=== PATIENT | male | born 1995 | race Caucasian/White ===

== ENCOUNTER 2017-01-29 18:07 | Emergency (ER) | payer OTHER ==
[~2017-01-29] VITALS: Ht 177.8 cm; Wt 75.0 kg
[2017-01-29 18:15] VITALS: BP 130/86; PULSE 76; RESP 12; O2SAT 99
--- NOTE | 2017-01-29 18:28 | ED.REPORT ---
HPI-General Illness Date of Service Jan 29, 2017 ED Provider: Zelalem London MD The pt is a 21 y/o male presenting to the ED due to a head trauma. He was inner tubing and hit the L side of his face on his friend's head. The pt also reports pain while opening his jaw, blurry vision and L teeth hurting. There was no LOC but he did report feeling nauseas after the incident, but much better now. He reports the pain being a 5/10 a few hours ago, but a 1/10 currently, primarily to the L side of his face and not really radiating. Worse w/ movement. He took 162 mg of Aspirin for the pain. His mother also reports her son walking off to the side and having slurred speech. The pt's vision is improving and is feeling much better now. No other complaints at this time. Nursing Notes Stated Complaint: SUSPECTED CONCUSSION Chief Complaint: Head, Face, Neck Trauma Nursing Notes Reviewed: Yes Allergies: Coded Allergies: No Known Allergies (Unverified , 01/29/17) General Time Seen by MD: 18:28 Chief Complaint Headache Hx Obtained From: Patient Arrived By: Walk-in Sudden in Onset?: Yes Symptom Duration: Since onset Caused by: Blunt trauma Location: : Head Quality: Aching Severity: Current: Pain level 1 out of 10 Severity: Maximum: Pain level 5 out of 10 Recent Healthcare: No recent doctor visit, No recent hospitalization Similar Sx Previous: No Past Medical History Past Medical History None reported Past Surgical History [place] teeth removal Smoking History Never Smoker Social History Alcohol Use: Denies alcohol use Drug Use: Denies drug use Other Social History: Good social support Ambulatory Status Independent Review of Systems L sided face pain Full Review of Systems Respiratory: Denies: Shortness of breath Cardiovascular: Denies: Chest pain Musculoskeletal: Denies: Back pain, Neck pain Complete sys rev & neg: except as marked. Physical Exam General: Airway patent, GCS of 15 --- eyes (4), verbal (5), motor (6) HEENT: Right eye normal with pupils 4-3 and briskly reactive Left eye normal with pupils 4-3 and briskly reactive No malocclusion. No nasal septal hematoma No obvious external signs of trauma to the scalp appreciated Swelling to the L side of face underneath eye but not above. Neck: nontender, trachea midline Lungs: Clear to auscultation bilaterally, normal work of breathing Chest: Stable without tenderness, no crepitus Cardiac: Regular rate and rhythm Abdomen: Normal, non-tender, non-distended. Back: No bruising, tenderness, or step-offs Pelvis: Stable Skin: Warm and well perfused Extremities: Left upper extremity grossly normal, no deformity. Right upper extremity grossly normal, no deformity. Right lower extremity grossly normal, no deformity. Left lower extremity grossly normal, no deformity. Pulses: Palpable to bilateral upper and lower extremities Neuro: Motor and sensory exams grossly within normal limits; patient localizes to pain. Vital Signs Vital Signs Date Time Temp Pulse Resp B/P Pulse Ox O2 Delivery O2 Flow Rate FiO2 01/29/17 22:09 36.6 89 12 119/70 98 Room Air 01/29/17 21:32 36.6 94 126/72 96 Room Air 01/29/17 18:15 36.7 76 12 130/86 99 Room Air Interpretation & Diagnostics Face CT w/o contrast IMPRESSION: There is a set of facial fractures on the left are only very slightly depressed or angulated, comprised of the lateral wall of the left orbit , the lateral and anterior lu of the left maxillary sinus, and the middle third of zygomatic arch. There is an associated small air-fluid level within the maxillary sinus posteriorly, and within the left orbit no trauma to the globe or extraocular musculature is seen. Dictated by: Thor Bruno M.D. on 01/29/2017 at 21:22 Approved by: Thor Bruno M.D. on 01/29/2017 at 21:26 CT Head Interpretation IMPRESSION: The brain parenchyma appears free of acute trauma or intracranial hemorrhage. There is a finding of several left-sided facial fractures, much better visualized by dedicated facial CT also obtained today. Please refer to that report. Dictated by: Thor Bruno M.D. on 01/29/2017 at 21:26 Approved by: Thor Bruno M.D. on 01/29/2017 at 21:28 Study: Head CT no contrast Interpretation / Wet Read by: Interpret - Radiologist Re-Eval/Medical Decision Med Decision/Clinical Course Facial CT w/ fx to lateral wall of the left orbit, the lateral and anterior lu of the left maxillary sinus, and the middle third of zygomatic arch. No orbital involvement. No evidence for retrobulbar hematoma. Head CT negative for acute abnormality. I suspect he's suffered a concussion. ENT c/s here in the ED and will see the patient in clinic, no need for further intervention at this time. Careful return precautions and home instructions discussed. Patient agreeable to plan, no further questions. Source of Hx: Old records Time of Eval: 21:45 Re-Evaluation/Progress Note: Pt rechecked. Informed pt of plan for treatment. Pt understands and agrees with plan for treatment. F/U instructions and RTER warnings given. All questions addressed. Consultation : Referral / Consult Name: Ovidio Bess MD Consulted With: ENT Call Returned at: 21:38 Note: Discussed pt's case. Dr. Bess says there is no need for any procedures but to keep head elevated tonight and f/u in clinic in next couple days. Counseled Regarding: Diagnosis, Lab results, Need for follow-up, When/why to return to ED Discharge & Departure Primary Impression: Orbit fracture, left Encounter type: initial encounter Fracture type: closed Qualified Code: S02.82XA - Fracture of other specified skull and facial bones, left side, initial encounter for closed fracture Additional Impressions: Zygomatic arch fracture Encounter type: initial encounter Fracture type: closed Laterality: unspecified laterality Qualified Code: S02.402A - Zygomatic fracture, unspecified side, initial encounter for closed fracture Left maxillary fracture Encounter type: initial encounter Fracture type: closed Qualified Code: S02.40DA - Maxillary fracture, left side, initial encounter for closed fracture Disposition: Home Discharge Condition All VS Reviewed: Yes Condition: Stable Patient Instructions: Facial Fracture (ED) Additional Instructions: Thank you for coming into the emergency department today. You were diagnosed with a facial fracture. Please read the attached additional instructions. There is no need for any surgical procedures at this time, but make sure to keep your head elevated tonight. Do not blow your nose; try sniffing tonight instead. Follow up with your primary care provider in the next few days, as well as with ENT. Referrals: Latoya Conrad MD (PCP) Camilleibe Attestation Portions of this note were transcribed by Brando Guzman. I, Dr. Masterson personally performed the history, physical exam and medical decision- making; I reviewed and confirmed the accuracy of the information in the transcribed note. Signed by: Wiley Mccall, 01/29/17 and 2058. copies to: Latoya Conrad MD, William B MD Jan 29, 2017 18:28 Brando Guzman Jan 29, 2017 20:56 Adryan Masterson MD Jan 29, 2017 18:28 Brando Guzman Jan 29, 2017 20:56
--- NOTE | 2017-01-29 21:28 | DRSVH ---
PROCEDURE: CT FACE WITHOUT CONTRAST ([id number]) INDICATIONS: facial trauma, swelling; eval fx, etc TECHNIQUE: Noncontrast 1.5 mm thick axial images acquired from the mandible through the frontal sinuses, with co malinda and sagittal reformatting. For radiation dose reduction, the following was used: automated ex posure control. COMPARISON: [facility], CT, CT BRAIN WO CON, 01/29/2017, 20:42. FINDINGS: Image quality: Excellent. Bones and teeth: Orbital lu are intact on the right but there appears to be a slightly displaced lateral wall left orbit fracture. Sinus lu on the right show no fracture or deformity but there i s a mildly depressed left lateral wall maxillary sinus fracture, with associated small posterior air- fluid level. Additionally at the junction the middle and lateral thirds of the anterior wall of the left maxillary sinus there is an additional fracture plane. Further laterally there is a mildly depr essed zygomatic arch fracture on the left. Nasal bones and septum are intact. Visualized portions o f the mandible demonstrate no fractures or subluxation. Zygomatic arches are intact. Pterygoid plat es are intact. Visualized portions of the skull base and auditory canals are intact. Sinuses: Paranasal sinuses are aerated, without fluid levels, mucosal thickening, or mucoceles. Mas toid air cells are aerated. Soft tissues: No edema, masses, or fluid collections. No enlarged lymph nodes. No soft tissue lace rations or debris. Vascular: Visualized vascular structures appear normal in the absence of contrast. Bony vascular fo ramina and canals are intact. IMPRESSION: There is a set of facial fractures on the left are only very slightly depressed or angul ated, comprised of the lateral wall of the left orbit, the lateral and anterior lu of the left max illary sinus, and the middle third of zygomatic arch. There is an associated small air-fluid level w ithin the maxillary sinus posteriorly, and within the left orbit no trauma to the globe or extraocula r musculature is seen. Dictated by: Thor Bruno M.D. on 01/29/2017 at 21:22 Approved by: Thor Bruno M.D. on 01/29/2017 at 21:26
--- NOTE | 2017-01-29 21:29 | DRSVH ---
PROCEDURE: CT BRAIN WITHOUT CONTRAST ([id number]) INDICATIONS: facial trauma, swelling; eval fx, etc TECHNIQUE: Noncontrast 4.5 mm thick angled axial sections acquired from the foramen magnum to the vertex, with c oronal reformats. COMPARISON: None. FINDINGS: Image quality: Excellent. CSF spaces: Basal cisterns are patent. No extra-axial fluid collections. Ventricles are normal in size and shape. Brain: No midline shift. No intracranial masses or hemorrhage. Mata-white matter interface is norm al. Skull and face: Calvarium bilaterally and visualized facial bones on the right are intact, without s uspicious lesions. Please refer to report from dedicated facial bone CT study same date for discussi on related to the presence of definite but only minimally displaced or depressed left facial fracture s. Sinuses: Visualized sinuses and mastoids are clear. IMPRESSION: The brain parenchyma appears free of acute trauma or intracranial hemorrhage. There is a finding of several left-sided facial fractures, much better visualized by dedicated facial CT also obtained today. Please refer to that report. Dictated by: Thor Bruno M.D. on 01/29/2017 at 21:26 Approved by: Thor Bruno M.D. on 01/29/2017 at 21:28
[2017-01-29 21:32] VITALS: BP 126/72; PULSE 94; O2SAT 96
[2017-01-29 22:09] VITALS: BP 119/70; PULSE 89; RESP 12; O2SAT 98
== END 2017-01-29 22:13 | disposition home or self-care (01) ==
LOC: SED 18:07
DX: S02.82XA Fracture of other specified skull and facial bones, left side, initial encounter for closed fracture (principal); S02.40FA Zygomatic fracture, left side, initial encounter for closed fracture; S02.40DA Maxillary fracture, left side, initial encounter for closed fracture; W51.XXXA Accidental striking against or bumped into by another person, initial encounter; Y93.16 Activity, rowing, canoeing, kayaking, rafting and tubing; Y92.009 Unspecified place in unspecified non-institutional (private) residence as the place of occurrence of the external cause; Y99.8 Other external cause status